=== PATIENT | male | born 1970 | race African-American/Black ===

== ENCOUNTER 2018-06-28 12:46 | Emergency (ER) | payer OTHER ==
[~2018-06-28] VITALS: Ht 177.8 cm; Wt 90.7 kg
[~2018-06-28 12:46] MED LIST: FIORICET PO; NOHOMEMEDICATIONS
[2018-06-28 13:28] LABS: ANION GAP 10 mmol/L (7-16); BUN 14 mg/dL (7-18); CALCIUM 9.6 mg/dL (8.5-10.1); CHLORIDE 102 mmol/L (98-107); CO2 28 mmol/L (21-32); GLUCOSE 92 mg/dL (74-106); POTASSIUM 4.5 mmol/L (3.5-5.1); SODIUM 140 mmol/L (136-145)
[2018-06-28 13:30] LABS: TROPONIN-I <0.06 ng/mL (<0.06)
[2018-06-28] MEDS ORDERED: COUMADIN 5 MG TA5 M1 PO ×2 (14:09→17:48)
[2018-06-28 15:13] LABS: ABSOLUTE NEUTROPHILS 3.9 thou/uL (1.4-8.2); BASOPHILS 0.6 % (0.0-2.0); EOSINOPHILS 3.2 % (0.0-3.0); HEMATOCRIT 45.3 % (42.0-52.0); HEMOGLOBIN 14.9 gm/dL (14.0-18.0); LYMPHOCYTES 29.6 % (24.0-44.0); MCH 27.6 pg (26.0-34.0); MCHC 32.9 g/dL (28.0-37.0); MONOCYTES 7.4 % (1.0-8.0); PLATELET COUNT 192 thou/uL (150-400); POLYS 59.2 % (36.0-66.0); RDW 14.8 % (10.5-14.5); WBC 6.5 thou/uL (4.0-11.0)
[2018-06-28] MEDS ORDERED: MOBIC7.5 MG PO (16:04)
[2018-06-28 16:23] LABS: PROTIME 10.5 Seconds (9.3-11.4)
--- NOTE | 2018-06-28 17:20 | EKG ---
[address] [address] [place] [address] ELECTROCARDIOGRAM REPORT Name: TATYANA LAIRD [facility] [id number] ������������������ Admission: 06/28/18 ������������������ Attend Phys: Discharge: ������������������ Date of : 68 Report #: [id number] ����������������������������������������������������������������� [id number] THIS REPORT FOR: //name[facility] Test Date: 2018-06-28 Test Time: 12:54:55 Pat Name: TATYANA LAIRD Department: Room: Gender: [employer] Inspector: AHSAN : 1970 Requested By: Mikhail Avalos Order Number: [id number] MD: Lit Recio Measurements Intervals Felt Rate: 73 P: 61 WI: 147 QRS: -20 QRSD: 86 T: 15 QT: 409 QTc: 451 Interpretive Statements Sinus rhythm Borderline left axis deviation RSR' in V1 or V2, right VCD Compared to ECG 09/25/2002 12:16:46 No significant change was found Electronically Signed On 06-28-2018 17:20:10 CDT by Lit Recio [email or web address] ��������������������������������������������� <ELECTRONICALLY SIGNED> ���������������������������������������� By: Lit Recio MD, [facility] ��������������������������������������������� 06/28/18 1720 1254 1254 Lit Recio MD, FACC /EPI
[2018-06-28] MEDS ORDERED: MEDROLDOSEPACK PO (17:43)
[2018-06-28 17:55] VITALS: BP 134/90
== END 2018-06-28 17:56 | disposition home or self-care (01) ==
LOC: ER 12:46
PROVIDERS: Emergency Medicine; Nurse Practitioner Family
DX: R07.9 Chest pain, unspecified (principal); R79.1 Abnormal coagulation profile; M25.512 Pain in left shoulder